=== PATIENT | male | born 1990 | race Caucasian/White ===

== ENCOUNTER 2021-12-15 12:47 | Observation (INO) ==
[2021-12-15] MEDS ORDERED: diphenhydrAMINE 50 MG/1 ML VIAL IV PRN (13:18)
[2021-12-15] MEDS ORDERED: oxyCODONE/ACETAMINOPHEN 5-325 MG TABLET PO PRN (13:18)
[2021-12-15] MEDS ORDERED: PROMETHAZINE 25 MG/1 ML VIAL IM PRN (13:18)
[2021-12-15] MEDS ORDERED: HYDROmorphone 1 MG/1 ML SYRINGE IV PRN (13:18)
[2021-12-15] MEDS ORDERED: CALCIUM CARBONATE CHEW 500 MG TABLET PO PRN (13:18)
[2021-12-15] MEDS ORDERED: ONDANSETRON 4 MG/2 ML VIAL IV PRN (13:18)
[2021-12-15] MEDS ORDERED: SIMETHICONE CHEW 125 MG TABLET PO PRN (13:18)
[2021-12-15] MEDS ORDERED: SODIUM CHLORIDE 0.9% 1,000 ML IV SCH (13:30)
[2021-12-15] MEDS ORDERED: cefTRIAXone 1,000 MG VIAL ONE (14:10)
[2021-12-15] MEDS ORDERED: MIDAZOLAM 2 MG/2 ML VIAL ONE (14:26)
[2021-12-15] MEDS ORDERED: LIDOCAINE 2% 5 ML VIAL ONE (14:26)
[2021-12-15] MEDS ORDERED: propofoL 200 MG/20 ML VIAL IV ONE (14:26)
[2021-12-15] MEDS ORDERED: SEVOFLURANE 1 UNIT/15 MINUTE INH ONE ×3 (14:26→15:47)
[2021-12-15] MEDS ORDERED: fentaNYL 100 MCG/2 ML VIAL ONE (14:26)
[2021-12-15] MEDS ORDERED: cefTRIAXone 1,000 MG in SODIUM CHLORIDE 0.9% 100 ML IV SCH (14:30)
[2021-12-15] MEDS ORDERED: LACTATED RINGERS 1,000 ML IV SCH (14:30)
[2021-12-15 14:46] LABS: Basophils # 0.1 10*3/uL (0.0-0.2); Basophils % 0.8 % (0.0-0.8); Eosinophils # 0.2 10*3/uL (0.0-0.87); Eosinophils % 2.7 % (0.00-10.9); Hematocrit 40.9 VOL% (42.0-52.0); Hemoglobin 13.9 GM/DL (14.0-18.0); Immature Granulocytes % 0.3 %; Immature Granulocytes Absolute 0.02 #; Lymphocytes % 16.6 % (21.2-54.2); Mean Platelet Volume 8.3 FL (9.6-12.0); Monocytes % 16.6 % (1.7-12.7); Platelet Count 254 T/CUMM (130-400); Red Blood Count 4.93 MC/CUMM (3.8-5.5); Red Cell Distribution Width 11.9 % (9.3-17.3); White Blood Count 6.2 T/CUMM (4-12)
[2021-12-15 15:10] LABS: Albumin 3.4 G/DL (3.4-5.0); Bilirubin,Total 0.9 MG/DL (0.20-1.00); Calcium 9.2 MG/DL (8.5-10.1); Osmolality,Calculated 276.4 MOS/KG (273-304); Potassium 3.7 MMOL/L (3.5-5.1); Total Protein 7.1 G/DL (6.4-8.2)
[2021-12-15 15:33] LABS: Band Neutrophils 1 % (0-10); Eosinophils 2 % (0-10); Lymphocytes 20 % (20-55); Platelet Estimate Normal; Total Cells Counted 100
[2021-12-15] MEDS ORDERED: ACETAMINOPHEN INJ 1,000 MG/100 ML VIAL IV ONE (15:38)
[2021-12-15] MEDS ORDERED: ONDANSETRON 4 MG/2 ML VIAL ONE (15:40)
[2021-12-15] MEDS ORDERED: PHENYLEPHRINE 1 MG/10 ML SYRINGE IV ONE (15:42)
[2021-12-15] MEDS ORDERED: LACTATED RINGERS 1,000 ML IV ONE (15:51)
[2021-12-15] MEDS ORDERED: INFLUENZA VIRUS VACCINE 0.5 ML SYRINGE IM ONE (16:53)
[2021-12-15] MEDS: DEXT 5% NACL 0.45% KCL 20 MEQ 20 MEQ/1,000 ML BAG IV SCH (17:02)
[2021-12-15] MEDS ORDERED: DOCUSATE SODIUM 100 MG CAPSULE PO SCH (21:00)
[2021-12-15] MEDS: ACETAMINOPHEN 325 MG TABLET PO SCH (21:13)
[2021-12-16] MEDS: DEXT 5% NACL 0.45% KCL 20 MEQ 20 MEQ/1,000 ML BAG IV SCH (00:29)
[2021-12-16] MEDS: ACETAMINOPHEN 325 MG TABLET PO SCH ×2 (03:50→03:56)
[2021-12-16 05:53] LABS: Basophils % 0.8 % (0.0-0.8); Eosinophils # 0.2 10*3/uL (0.0-0.87); Eosinophils % 3.1 % (0.00-10.9); Hematocrit 36.3 VOL% (42.0-52.0); Hemoglobin 12.3 GM/DL (14.0-18.0); Immature Granulocytes % 0.6 %; Immature Granulocytes Absolute 0.03 #; Lymphocytes # 1.6 10*3/uL (1.4-4.0); Lymphocytes % 33.7 % (21.2-54.2); Mean Corpuscular HGB Conc 33.9 GM/DL (32-36); Mean Corpuscular Volume 83.4 FL (87-102); Mean Platelet Volume 8.4 FL (9.6-12.0); Monocytes # 0.7 10*3/uL (0.11-0.8); Monocytes % 14.7 % (1.7-12.7); Neutrophils % 47.1 % (38.7-73.9); Platelet Count 238 T/CUMM (130-400); Red Blood Count 4.35 MC/CUMM (3.8-5.5); Red Cell Distribution Width 11.9 % (9.3-17.3); White Blood Count 4.8 T/CUMM (4-12)
[2021-12-16 06:49] LABS: Calcium 8.3 MG/DL (8.5-10.1); Osmolality,Calculated 282.8 MOS/KG (273-304); Potassium 3.5 MMOL/L (3.5-5.1)
[2021-12-16] MEDS ORDERED: POTASSIUM CHLORIDE 20 MEQ TABLET PO ONE (07:06)
[2021-12-16 08:43] VITALS: BP 108/73
== END 2021-12-16 09:43 | disposition home or self-care (01) ==
LOC: N.SDSINP → N.2W 16:39
PROVIDERS: ADMIT Surgery; ATTEND Surgery